=== PATIENT | female | born 1960 | race Caucasian/White ===

== ENCOUNTER 2020-09-17 04:38 | Day surgery (SDC) | payer OTHER ==
[2020-09-16 12:01] VITALS: BMI 29.6
--- OUTSIDE RECORDS SUMMARY | 2020-09-17 04:44 | XMS ---
:1960 Author Organization [facility] Support Name Relationship Address Phone [facility] Unavailable [address] [place] [address] [phone] [place] [address] [address] [employer] [address] [facility] [place] [address] Re-disclosure Warning The records that you are about to access may contain information from federally- assisted alcohol or drug abuse programs. If such information is present, then the following federally mandated warning applies: This information has been disclosed to you from records protected by federal confidentiality rules (42 CFR part 2). The federal rules prohibit you from making any further disclosure of this information unless further disclosure is expressly permitted by the written consent of the person to whom it pertains or as otherwise permitted by 42 CFR part 2. A general authorization for the release of medical or other information is NOT sufficient for this purpose. The Federal rules restrict any use of the information to criminally investigate or prosecute any alcohol or drug abuse patient.The records that you are about to access may contain highly sensitive health information, the redisclosure of which is protected by Article 27-F of the [facility] Public Health law. If you continue you may haveaccess to information: Regarding HIV / AIDS; Provided by facilities licensed or operated by the [facility] Office of Mental Health; or Provided by the [facility] Office for People With Developmental Disabilities. If such information is present, then the following [facility] mandated warning applies: This information has been disclosed to you from confidential records which are protected by state law. State law prohibits you from making any further disclosure of this information without the specific written consent of the person to whom it pertains, or as otherwise permitted by law. Any unauthorized further disclosure in violation of state law may result in a fine or care home sentence or both. A general authorization for the release of medical or other information is NOT sufficient authorization for further disclosure. Insurance Providers Payer name Policy type Policy ID Covered Covered democrat's Policy P percy / Coverage democrat ID relationship to [facility] type mccullough GARRET [id number] SP [id number] 2 HEALTH Results ID Date Data Source [id number] 09/13/2020 05:30:00 PM EDT [facility] Name Value Range Interpretation Description Data Sup porting Code Source(s) Document(s ) SARS [facility] coronavirus 2 RNA This lab was ordered by [facility] and reported by [facility]. ID Date Data Source [id number] 09/10/2020 09:10:00 AM EDT [facility] FASTING: UNKNOWNReceived: 09/10/2020 at 06:15:00 QTE: [facility], [place], [address], Jose Guadalupe Max MD FASTING: UNKNOWNReceived: 09/10/2020 at 06:15:00 QTE: [facility], [place], [address], Jose Guadalupe Max MD Received: 09/10/2020 at 06:15:00 QTE : [facility] [place], [address]Jose Guadalupe MD Received: 09/10/2020 at 06:15:00 QTE : [facility], [place], [address], Jose Guadalupe Max MD Name Value Range Interpretation Code Description Data Fiordaliza rce(s) Supporting Document(s ) ID Date Data Source [id number] 09/16/2020 12:12:00 PM EDT [facility] FASTING: UNKNOWNReceived: 09/10/2020 at 06:15:00 QTE: [facility] [place], [address]Jose Guadalupe MD FASTING: UNKNOWNReceived: 09/10/2020 at 06:15:00 QTE: [facility] [place], [address], Jose Guadalupe Max MD Received: 09/10/2020 at 06:15:00 QTE : [facility]i [address], [place], [address], Jose Guadalupe Max MD Received: 09/10/2020 at 06:15:00 QTE : [facility], Christi Pra[address]ati, [place], [address], Jose Guadalupe Max MD Name Value Range Interpretation Description Data Source(s ) Supporting Code Document(s ) Glucose 107 mg/dL 65-99 Above high normal [facility] [Mass/volum Diagnostics e] in Serum or Plasma Fasting reference intervalFor someone without known diabetes, a glucose valuebetween 100 and 125 mg/dL is consis tent withprediabetes and should be confirmed with afollow-up test. Urea nitrogen 15 mg/dL 7-25 Normal (applies to [facility] [Mass/volume] in Serum or non-numeric results) Plasma Creatinine [Mass/volume] 0.65 mg/dL Normal (applies to [facility] in Serum or Plasma non-numeric results) Age and/or gender not provided. Unable t o calculate eGFR. Reference Range Male: 0.70-1.25 Female: 0.50-0.99 Unable to flag appropriately due to gender not provided.For patients >49 years of age, the reference limitfor Creatinine is approxi mately 13% higher for peopleidentified as -[place]. Urea nitrogen/Creatinine NOT APPLICABLE 6-22 [facility] [Mass Ratio] in Serum or (calc) Plasma Sodium [Moles/volume] in 140 mmol/L 135-146 Normal Ques t Diagnostics Serum or Plasma (applies to non-numeric results) Potassium [Moles/volume] 4.7 mmol/L 3.5-5.3 Normal Ques t [facility] in Serum or Plasma (applies to non-numeric results) Chloride [Moles/volume] in 105 mmol/L 98-110 Normal Qu est [facility] Serum or Plasma (applies to non-numeric results) Carbon dioxide, total 18 mmol/L 20-32 Below low [facility] [Moles/volume] in Serum or normal Plasma Calcium [Mass/volume] in 9.8 mg/dL Normal [facility] Serum or Plasma (applies to non-numeric results) Reference Range Male: 8.6-10.3 Female: 8.6-10.4 Unable to flag appropriately due to gender not provided. Protein [Mass/volume] 7.4 g/dL 6.1-8.1 Normal (applies to [facility] in Serum or Plasma non-numeric results) Albumin [Mass/volume] 4.3 g/dL 3.6-5.1 Normal (applies to [facility] in Serum or Plasma non-numeric results) Globulin [Mass/volume] 3.1 g/dL 1.9-3.7 Normal (applies to [facility] in Serum by (calc) non-numeric results) calculation Albumin/Globulin [Mass 1.4 (calc) 1.0-2.5 Normal (applies to [facility] Ratio] in Serum or non-numeric results) Plasma Bilirubin.total 0.3 mg/dL 0.2-1.2 Normal (applies to [facility] [Mass/volume] in Serum non-numeric results) or Plasma Alkaline phosphatase 84 U/L Normal (applies to [facility] [Enzymatic non-numeric results) activity/volume] in Serum or Plasma Reference Range Male: 35-144 Female: 37-153 Unable to flag appropriately du e to gender not provided. Aspartate aminotransferase 20 U/L 10-35 Normal (applies to [facility] [Enzymatic activity/volume] non-numeric results) in Serum or Plasma Alanine aminotransferase 14 U/L Normal (applies to [facility] [Enzymatic activity/volume] non-numeric results) in Serum or Plasma Reference range Male: 9-46 Female: 6-29 Unable to flag appropriately due to ge nder not provided. ID Date Data Source [id number] 09/10/2020 09:10:00 AM EDT [facility] FASTING: UNKNOWNReceived: 09/10/2020 at 06:15:00 QTE: [place], [address], Jose Guadalupe Max MD FASTING: UNKNOWNReceived: 09/10/2020 at 06:15:00 QTE: [place], [address], Jose Guadalupe Max MD Received: 09/10/2020 at 06:15:00 QTE : [place], [address], Jose Guadalupe Max MD Received: 09/10/2020 at 06:15:00 QTE : [facility] Dip[place], [address], Jose Guadalupe Max MD Name Value Range Interpretation Code Description Data Fiordaliza rce(s) Supporting Document(s ) Service [facility] comment 03 Diagnostics We received the following limited stabil ity specimenwith no test marked. In the interest of the patient weperformed the test most indicated by the specimenwithin the stability period for that test. Test res ultswill not be released, however, unless you contact us toauthorize the test. CONTAINER TYPE: LAVENDER [facility] QUESTION/PROBLEM Specimen L unneeded Que st Diagnostics COMMENT [facility] REQUESTED INFORMATION AUTHORIZED SIGNATURE TO PRE VENT FURTHER DELAYS IN TESTING, PLEASE COMPLETEINFORMATION ABOVE AND FAX TO TO RESOLVETHIS ORDER. ID Date Data Source [id number] 09/16/2020 12:12:00 PM EDT [facility] FASTING: UNKNOWNReceived: 09/10/2020 at 06:15:00 QTE: [facility], [place], [address], Jose Guadalupe Max MD FASTING: UNKNOWNReceived: 09/10/2020 at 06:15:00 QTE: [facility], [address]Jose Guadalupe MD Received: 09/10/2020 at 06:15:00 QTE : [facility] [place], [address]Jose Guadalupe MD Received: 09/10/2020 at 06:15:00 QTE : [facility], [address], Jose Guadalupe Max MD Name Value Range Interpretation Description Data Source(s ) Supporting Code Document(s ) aPTT in 27 sec 23-32 Normal (applies [facility] Platelet poor to non-numeric Diagnostics plasma by results) Coagulation assay This test has not been validated for mon itoringunfractionated heparin therapy. For testing thatis validated for this type o f therapy, please referto the Heparin Anti-Xa assay (test code 27759).For additional i nformation, please refer tohttp://[employer]Photoways/ faq/CDZ269(This link is being provided forinformational/educational purposes on ly.) ID Date Data Source [id number] 09/16/2020 12:12:00 PM EDT [facility] FASTING: UNKNOWNReceived: 09/10/2020 at 06:15:00 QTE: [facility]osticsOs[facility], Christi [place], [address], Jose Guadalupe Max MD FASTING: UNKNOWNReceived: 09/10/2020 at 06:15:00 QTE: [facility]osticsOs[facility], Christi [place], [address]Jose Guadalupe MD Received: 09/10/2020 at 06:15:00 QTE : [facility] Christi [place], [address]Jose Guadalupe MD Received: 09/10/2020 at 06:15:00 QTE : [facility]ostics[facility], Christi [place], [address], Jose Guadalupe Max MD Name Value Range Interpretation Description Data Source(s ) Supporting Code Document(s ) INR in Platelet 1.0 Normal (applies to [facility] poor plasma by non-numeric Diagnostics Coagulation results) assay Reference Range 0.9- 1.1Moderate-intensity Warfarin Therapy 2.0-3.0Higher-intensity Warfarin Therapy 3.0-4.0 Prothrombin time (PT) 10.0 sec 9.0-11.5 Normal (applies to [facility] non-numeric results) For additional information, please refer tohttp://[employer]Timecros/ faq/AXG662(This link is being provided for informational/educational purposes only. ) ID Date Data Source [id number] 08/31/2020 08:11:00 AM EDT [facility] FASTING: UNKNOWNReceived: 08/27/2020 at 05:49:00 QTE: [facility], [address], [place], [address], Jose Guadalupe Max MD Received: 08/27/2020 at 05:49:00 QTE : [facility], [address], [place], [address], Jose Guadalupe Max MD Received: 08/27/2020 at 05:49:00 QTE : [facility], [address], [place], [address], Jose Guadalupe Max MD Received: 08/27/2020 at 05:49:00 QTE : [facility], [address], [place], [address], Jose Guadalupe Max MD Received: 08/27/2020 at 05:49:00 QTE : [facility], [address], [place], [address], Jose Guadalupe Max MD Received: 08/27/2020 at 05:49:00 QTE : [facility], [address], [place], [address], Jose Guadalupe Max MD Received: 08/27/2020 at 05:49:00 QTE : [facility], [address], [place], [address], Jose Guadalupe Max MD Received: 08/27/2020 at 05:49:00 QTE : [facility], [address], [place], [address], Jose Guadalupe Max MD Received: 08/27/2020 at 05:49:00 QTE : [facility], [address], [place], [address], Jose Guadalupe Max MD Received: 08/27/2020 at 05:49:00 QTE : [facility], [address], [place], [address], Jose Guadalupe Max MD Received: 08/27/2020 at 05:49:00 QTE : [facility], [address], [place], [address], Jose Guadalupe Max MD Received: 08/27/2020 at 05:49:00 QTE : [facility], Christi Cor[address], [place], [address], Jose Guadalupe Max MD Received: 08/27/2020 at 05:49:00 QTE : [facility], [address], [place], [address], Jose Guadalupe Max MD Name Value Range Interpretation Code Description Data Fiordaliza rce(s) Supporting Document(s ) ID Date Data Source [id number] 08/31/2020 08:11:00 AM EDT [facility] FASTING: UNKNOWNReceived: 08/27/2020 at 05:49:00 QTE: [facility], [address], [place], [address], Jose Guadalupe Max MD Received: 08/27/2020 at 05:49:00 QTE : [facility], [address], [place], [address], Jose Guadalupe Max MD Received: 08/27/2020 at 05:49:00 QTE : [facility], [address], [place], [address], Jose Guadalupe Max MD Received: 08/27/2020 at 05:49:00 QTE : [facility], [address], [place], [address], Jose Guadalupe Max MD Received: 08/27/2020 at 05:49:00 QTE : [facility], [address], [place], [address], Jose Guadalupe Max MD Received: 08/27/2020 at 05:49:00 QTE : [facility], [address], [place], [address], Jose Guadalupe Max MD Received: 08/27/2020 at 05:49:00 QTE : [facility], Christ[address], [place], [address], Jose Guadalupe Max MD Received: 08/27/2020 at 05:49:00 QTE : [facility], [address], [place], [address], Jose Guadalupe Max MD Received: 08/27/2020 at 05:49:00 QTE : [facility], [address], [place], [address], Jose Guadalupe Max MD Received: 08/27/2020 at 05:49:00 QTE : [facility], [address], [place], [address], Jose Guadalupe Max MD Received: 08/27/2020 at 05:49:00 QTE : [facility], [address], [place], [address], Jose Guadalupe Max MD Received: 08/27/2020 at 05:49:00 QTE : [facility], Christ[address], [place], [address], Jose Guadalupe Max MD Received: 08/27/2020 at 05:49:00 QTE : [facility], [address], [place], [address], Jose Guadalupe Max MD Name Value Range Interpretation Description Data Source(s ) Supporting Code Document(s ) Cholesterol 250 <200 Above high normal [facility] [Mass/volume] mg/dL Diagnostics in Serum or Plasma ID Date Data Source [id number] 08/31/2020 08:11:00 AM EDT [facility] FASTING: UNKNOWNReceived: 08/27/2020 at 05:49:00 QTE: [facility], [place], [address], Jose Guadalupe Max MD Received: 08/27/2020 at 05:49:00 QTE : [facility], [address], [place], [address], Jose Guadalupe Max MD Received: 08/27/2020 at 05:49:00 QTE : [facility], [address], [place], [address], Jose Guadalupe Max MD Received: 08/27/2020 at 05:49:00 QTE : [facility], [address], [place], [address], Jose Guadalupe Max MD Received: 08/27/2020 at 05:49:00 QTE : [facility], [address], [place], [address], Jose Guadalupe Max MD Received: 08/27/2020 at 05:49:00 QTE : [facility], [address], [place], [address], Jose Guadalupe Max MD Received: 08/27/2020 at 05:49:00 QTE : [facility], [address], [place], [address], Jose Guadalupe Max MD Received: 08/27/2020 at 05:49:00 QTE : [facility], [address], [place], [address], Jose Guadalupe Max MD Received: 08/27/2020 at 05:49:00 QTE : [facility], [address], [place], [address], Jose Guadalupe Max MD Received: 08/27/2020 at 05:49:00 QTE : [facility], [address], [place], [address], Jose Guadalupe Max MD Received: 08/27/2020 at 05:49:00 QTE : [facility], [address], [place], [address], Jose Guadalupe Max MD Received: 08/27/2020 at 05:49:00 QTE : [facility], [address], [place], [address], Jose Guadalupe Max MD Received: 08/27/2020 at 05:49:00 QTE : [facility], [place], [address], Jose Guadalupe Max MD Name Value Range Interpretation Description Data Sup porting Code Source(s) Document(s ) Cholesterol in 77 mg/dL > OR = Normal (applies [facility] HDL 50 to non-numeric Diagnostics [Mass/volume] results) in Serum or Plasma ID Date Data Source [id number] 08/31/2020 08:11:00 AM EDT [facility] FASTING: UNKNOWNReceived: 08/27/2020 at 05:49:00 QTE: [facility], [place], [address], Jose Guadalupe Max MD Received: 08/27/2020 at 05:49:00 QTE : [facility], [place], [address], Jose Guadalupe Max MD Received: 08/27/2020 at 05:49:00 QTE : [facility], [place], [address], Jose Guadalupe Max MD Received: 08/27/2020 at 05:49:00 QTE : [facility], [place], [address], Jose Guadalupe Max MD Received: 08/27/2020 at 05:49:00 QTE : [facility], [address], Jose Guadalupe Max MD Received: 08/27/2020 at 05:49:00 QTE : [facility], [address], Jose Guadalupe Max MD Received: 08/27/2020 at 05:49:00 QTE : [facility], [place], [address], Jose Guadalupe Max MD Received: 08/27/2020 at 05:49:00 QTE : [facility], [address], [place], [address], Jose Guadalupe Max MD Received: 08/27/2020 at 05:49:00 QTE : [facility], [address], [place], [address], Jose Guadalupe Max MD Received: 08/27/2020 at 05:49:00 QTE : [facility], [address], [place], [address], Jose Guadalupe Max MD Received: 08/27/2020 at 05:49:00 QTE : [facility], [address], [place], [address], Jose Guadalupe Max MD Received: 08/27/2020 at 05:49:00 QTE : [facility], [address], [place], [address], Jose Guadalupe Max MD Received: 08/27/2020 at 05:49:00 QTE : [facility], [address], [place], [address], Jose Guadalupe Max MD Name Value Range Interpretation Description Data Source(s ) Supporting Code Document(s ) Triglyceride 240 <150 Above high normal [facility] [Mass/volume] mg/dL Diagnostics in Serum or Plasma If a non-fasting specimen was collected, considerrepeat triglyceride testing on a fasting specimenif clinically indicated. Alber et al. J. of Clin. Lipidol. 2015;9:129-169. ID Date Data Source [id number] 08/31/2020 08:11:00 AM EDT [facility] FASTING: UNKNOWNReceived: 08/27/2020 at 05:49:00 QTE: [facility], Christi [place], [place], [address], Jose Guadalupe Max MD Received: 08/27/2020 at 05:49:00 QTE : [facility], Christi [place], [place], [address]Jose Guadalupe MD Received: 08/27/2020 at 05:49:00 QTE : [facility], [address], [place], [address], Jose Guadalupe Max MD Received: 08/27/2020 at 05:49:00 QTE : [facility], [address], [place], [address], Jose Guadalupe Max MD Received: 08/27/2020 at 05:49:00 QTE : [facility], [address], [place], [address], Jose Guadalupe Max MD Received: 08/27/2020 at 05:49:00 QTE : [facility], [address], [place], [address], Jose Guadalupe Max MD Received: 08/27/2020 at 05:49:00 QTE : [facility], [address], [place], [address], Jose Guadalupe Max MD Received: 08/27/2020 at 05:49:00 QTE : [facility], [address], [place], [address], Jose Guadalupe Max MD Received: 08/27/2020 at 05:49:00 QTE : [facility], [address], [place], [address], Jose Guadalupe Max MD Received: 08/27/2020 at 05:49:00 QTE : [facility], [address], [place], [address], Jose Guadalupe Max MD Received: 08/27/2020 at 05:49:00 QTE : [facility], [address], [place], [address], Jose Guadalupe Max MD Received: 08/27/2020 at 05:49:00 QTE : [facility], [address], [place], [address], Jose Guadalupe Max MD Received: 08/27/2020 at 05:49:00 QTE : [facility], [address], [place], [address], Jose Guadalupe Max MD Name Value Range Interpretation Description Data Source(s ) Supporting Code Document(s ) Cholesterol in 134 Above high normal [facility] LDL mg/dL [facility] [Mass/volume] (calc) in Serum or Plasma by calculation Reference range: <100Desirable range <10 0 mg/dL for primary prevention;<70 mg/dL for patients with CHD or diabetic patientswi th > or = 2 CHD risk factors.LDL-C is now calculated using the JabariCandida lation, which is a validated novel method providingbetter accuracy than the Friede ranjith equation in theestimation of LDL-C.Jabari SS et al. KENDY. 2013;310(58 ): 2833-6075(http://education.Endorphin.com/faq/DQP335) ID Date Data Source [id number] 08/31/2020 08:11:00 AM EDT [facility] FASTING: UNKNOWNReceived: 08/27/2020 at 05:49:00 QTE: [facility] [place], [address], Jose Guadalupe Max MD Received: 08/27/2020 at 05:49:00 QTE : [facility] [place], [address], Jose Guadalupe Max MD Received: 08/27/2020 at 05:49:00 QTE : [place], [address]Jose Guadalupe MD Received: 08/27/2020 at 05:49:00 QTE : [facility] [place], [address], Jose Guadalupe Max MD Received: 08/27/2020 at 05:49:00 QTE : [facility] [place], [address]Jose Guadalupe MD Received: 08/27/2020 at 05:49:00 QTE : [facility] [place], [address], Jose Guadalupe Max MD Received: 08/27/2020 at 05:49:00 QTE : [facility], [address], [place], [address], Jose Guadalupe Max MD Received: 08/27/2020 at 05:49:00 QTE : [facility], [address], [place], [address], Jose Guadalupe Max MD Received: 08/27/2020 at 05:49:00 QTE : [facility], [address], [place], [address], Jose Guadalupe Max MD Received: 08/27/2020 at 05:49:00 QTE : [facility], [address], [place], [address], Jose Guadalupe Max MD Received: 08/27/2020 at 05:49:00 QTE : [facility], [address], [place], [address], Jose Guadalupe Max MD Received: 08/27/2020 at 05:49:00 QTE : [facility], [address], [place], [address], Jose Guadalupe Max MD Received: 08/27/2020 at 05:49:00 QTE : [facility], [address], [place], [address], Jose Guadalupe Max MD Name Value Range Interpretation Description Data Source(s ) Supporting Code Document(s ) Cholestero 3.2 <5.0 Normal (applies to [facility] l.total/Ch (calc) non-numeric Diagnostics olesterol results) in HDL [Mass Ratio] in Serum or Plasma ID Date Data Source [id number] 08/31/2020 08:11:00 AM EDT [facility] FASTING: UNKNOWNReceived: 08/27/2020 at 05:49:00 QTE: [facility], [address], [place], [address], Jose Guadalupe Max MD Received: 08/27/2020 at 05:49:00 QTE : [facility], [address], [place], [address], Jose Guadalupe Max MD Received: 08/27/2020 at 05:49:00 QTE : [facility], [address], [place], [address], Jose Guadalupe Max MD Received: 08/27/2020 at 05:49:00 QTE : [facility], [address], [place], [address], Jose Guadalupe Max MD Received: 08/27/2020 at 05:49:00 QTE : [facility], [address], [place], [address], Jose Guadalupe Max MD Received: 08/27/2020 at 05:49:00 QTE : [facility], [address], [place], [address], Jose Guadalupe Max MD Received: 08/27/2020 at 05:49:00 QTE : [facility], [address], [place], [address], Jose Guadalupe Max MD Received: 08/27/2020 at 05:49:00 QTE : [facility], [address], [place], [address], Jose Guadalupe Max MD Received: 08/27/2020 at 05:49:00 QTE : [facility], [address], [place], [address], Jose Guadalupe Max MD Received: 08/27/2020 at 05:49:00 QTE : [facility], [address], [place], [address], Jose Guadalupe Max MD Received: 08/27/2020 at 05:49:00 QTE : [facility], [address], [place], [address], Jose Guadalupe Max MD Received: 08/27/2020 at 05:49:00 QTE : [facility], [address], [place], [address], Jose Guadalupe Max MD Received: 08/27/2020 at 05:49:00 QTE : [facility], [address], [place], [address], Jose Guadalupe Max MD Name Value Range Interpretation Description Data Source(s ) Supporting Code Document(s ) Cholesterol 173 <130 Above high normal [facility] non HDL mg/dL Diagnostics [Mass/volume] (calc) in Serum or Plasma For patients with diabetes plus 1 major ASCVD riskfactor, treating to a non-HDL-C goal of <100 mg/dL(LDL-C of <70 mg/dL) i s considered a therapeuticoption. ID Date Data Source [id number] 08/31/2020 08:11:00 AM EDT [facility] FASTING: UNKNOWNReceived: 08/27/2020 at 05:49:00 QTE: [facility], [place], [address], Jose Guadalupe Max MD Received: 08/27/2020 at 05:49:00 QTE : [facility] [place], [address], Jose Guadalupe Max MD Received: 08/27/2020 at 05:49:00 QTE : [facility] [place], [address], Jose Guadalupe Max MD Received: 08/27/2020 at 05:49:00 QTE : [facility] [place], [address], Jose Guadalupe Max MD Received: 08/27/2020 at 05:49:00 QTE : [facility] [place], [address], Jose Guadalupe Max MD Received: 08/27/2020 at 05:49:00 QTE : [facility] [place], [address]Jose Guadalupe MD Received: 08/27/2020 at 05:49:00 QTE : [facility], [address], [place], [address], Jose Guadalupe Max MD Received: 08/27/2020 at 05:49:00 QTE : [facility], [address], [place], [address], Jose Guadalupe Max MD Received: 08/27/2020 at 05:49:00 QTE : [facility], [address], [place], [address], Jose Guadalupe Max MD Received: 08/27/2020 at 05:49:00 QTE : [facility], [address], [place], [address], Jose Guadalupe Max MD Received: 08/27/2020 at 05:49:00 QTE : [facility], [address], [place], [address], Jose Guadalupe Max MD Received: 08/27/2020 at 05:49:00 QTE : [facility], [address], [place], [address], Jose Guadalupe Max MD Received: 08/27/2020 at 05:49:00 QTE : [facility], [address], [place], [address], Jose Guadalupe Max MD Name Value Range Interpretation Description Data Source(s ) Supporting Code Document(s ) Glucose 186 mg/dL 65-99 Above high normal [facility] [Mass/volum Diagnostics e] in Serum or Plasma Fasting reference intervalFor someone without known diabetes, a glucosevalue >125 mg/dL indicates that t hey may havediabetes and this should be confirmed with afollow-up test. Urea nitrogen 15 mg/dL 7-25 Normal (applies to [facility] D iagnostics [Mass/volume] in Serum non-numeric results) or Plasma Creatinine 0.73 mg/dL 0.50-0.99 Normal (applies to [facility] gn[facility] [Mass/volume] in Serum non-numeric results) or Plasma For patients >49 years of age, the refer ence limitfor Creatinine is approximately 13% higher for peopleidentified as -A merican. Glomerular filtration 90 mL/min/1.73m2 > OR = Normal (applies [facility] rate/1.73 sq 60 to non-numeric Diagnostics M.predicted [Volume results) Rate/Area] in Serum, Plasma or Blood by Creatinine-based formula (MDRD) Glomerular filtration 104 mL/min/1.73m2 > OR = Normal (applies [facility] rate/1.73 sq M 60 to non-numeric Diagnostic s predicted among blacks results) [Volume Rate/Area] in Serum or Plasma by Creatinine-based formula (MDRD) Urea NOT APPLICABLE 6-22 [facility] nitrogen/Creatinine (calc) Diagnostic s [Mass Ratio] in Serum or Plasma Sodium [Moles/volume] 138 mmol/L 135-146 Normal (applies Q uest in Serum or Plasma to non-numeric Diagno stics results) Potassium 4.5 mmol/L 3.5-5.3 Normal (applies [facility] [Moles/volume] in to non-numeric Diagnos tics Serum or Plasma results) Chloride 102 mmol/L 98-110 Normal (applies [facility] [Moles/volume] in to non-numeric Diagnos tics Serum or Plasma results) Carbon dioxide, total 26 mmol/L 20-32 Normal (applies Qu est [Moles/volume] in to non-numeric Diagnos tics Serum or Plasma results) Calcium [Mass/volume] 9.9 mg/dL 8.6-10.4 Normal (applies Qu est in Serum or Plasma to non-numeric Diagno stics results) Protein [Mass/volume] 7.3 g/dL 6.1-8.1 Normal (applies Qu est in Serum or Plasma to non-numeric Diagno stics results) Albumin [Mass/volume] 4.3 g/dL 3.6-5.1 Normal (applies Qu est in Serum or Plasma to non-numeric Diagno stics results) Globulin [Mass/volume] 3.0 g/dL (calc) 1.9-3.7 Normal (applies [facility] in Serum by to non-numeric Diagnostics calculation results) Albumin/Globulin [Mass 1.4 (calc) 1.0-2.5 Normal (applies [facility] Ratio] in Serum or to non-numeric Diagno stics Plasma results) Bilirubin.total 0.4 mg/dL 0.2-1.2 Normal (applies [facility] [Mass/volume] in Serum to non-numeric Di agnostics or Plasma results) Alkaline phosphatase 92 U/L 37-153 Normal (applies Que st [Enzymatic to non-numeric Diagnostics activity/volume] in results) Serum or Plasma Aspartate 14 U/L 10-35 Normal (applies [facility] aminotransferase to non-numeric Diagnost ics [Enzymatic results) activity/volume] in Serum or Plasma Alanine 14 U/L 6-29 Normal (applies [facility] aminotransferase to non-numeric Diagnost ics [Enzymatic results) activity/volume] in Serum or Plasma ID Date Data Source [id number] 08/31/2020 08:11:00 AM EDT [facility] FASTING: UNKNOWNReceived: 08/27/2020 at 05:49:00 QTE: [facility], [place], [address], Jose Guadalupe Max MD Received: 08/27/2020 at 05:49:00 QTE : [facility] [place], [address], Jose Guadalupe Max MD Received: 08/27/2020 at 05:49:00 QTE : [facility], [place], [address], Jose Guadalupe Max MD Received: 08/27/2020 at 05:49:00 QTE : [facility] Christi [place], [address], Jose Guadalupe Max MD Received: 08/27/2020 at 05:49:00 QTE : [facility] [place], [address], Jose Guadalupe Max MD Received: 08/27/2020 at 05:49:00 QTE : [facility] [place], [address], Jose Guadalupe Max MD Received: 08/27/2020 at 05:49:00 QTE : [facility], [address], Jose Guadalupe Max MD Received: 08/27/2020 at 05:49:00 QTE : [facility], [address], [place], [address], Jose Guadalupe Max MD Received: 08/27/2020 at 05:49:00 QTE : [facility], [address], [place], [address], Jose Guadalupe Max MD Received: 08/27/2020 at 05:49:00 QTE : [facility], [address], [place], [address], Jose Guadalupe Max MD Received: 08/27/2020 at 05:49:00 QTE : [facility], [address], [place], [address], Jose Guadalupe Max MD Received: 08/27/2020 at 05:49:00 QTE : [facility], [address], [place], [address], Jose Guadalupe Max MD Received: 08/27/2020 at 05:49:00 QTE : [facility], [address], [place], [address], Jose Guadalupe Max MD Name Value Range Interpretation Description Data Sup porting Code Source(s) Document(s ) Leukocytes 5.9 3.8-10. Normal (applies [facility] [#/volume] in Thousand 8 to non-numeric Diagnostics Blood by /uL results) Automated count Erythrocytes 4.34 3.80-5. Normal (applies [facility] [#/volume] in Million/ 10 to non-numeric Diagnostics Blood by uL results) Automated count Hemoglobin 13.0 11.7-15 Normal (applies [facility] [Mass/volume] in g/dL .5 to non-numeric Diagnost ics Blood results) Hematocrit 39.3 % 35.0-45 Normal (applies [facility] [Volume .0 to non-numeric Diagnostics Fraction] of results) Blood by Automated count Erythrocyte mean 90.6 fL 80.0-10 Normal (applies [facility] corpuscular 0.0 to non-numeric Diagnostics volume [Entitic results) volume] by Automated count Erythrocyte mean 30.0 pg 27.0-33 Normal (applies [facility] corpuscular .0 to non-numeric Diagnostics hemoglobin results) [Entitic mass] by Automated count Erythrocyte mean 33.1 32.0-36 Normal (applies [facility] corpuscular g/dL .0 to non-numeric Diagnostics hemoglobin results) concentration [Mass/volume] by Automated count Erythrocyte 12.9 % 11.0-15 Normal (applies [facility] distribution .0 to non-numeric Diagnostics width [Ratio] by results) Automated count Platelets 318 140-400 Normal (applies [facility] [#/volume] in Thousand to non-numeric Diagnostics Blood by /uL results) Automated count Platelet mean 11.5 fL 7.5-12. Normal (applies [facility] volume [Entitic 5 to non-numeric Diagnosti cs volume] in Blood results) by Leilani ID Date Data Source [id number] 08/31/2020 08:11:00 AM EDT [facility] FASTING: UNKNOWNReceived: 08/27/2020 at 05:49:00 QTE: [facility], [place], [address], Jose Guadalupe Max MD Received: 08/27/2020 at 05:49:00 QTE : [facility], Christi Gonzalezvinny [place], [address], Jose Guadalupe Max MD Received: 08/27/2020 at 05:49:00 QTE : [facility], [place], [address], Jose Guadalupe Max MD Received: 08/27/2020 at 05:49:00 QTE : [facility], Christi [place], [address], Jose Guadalupe Max MD Received: 08/27/2020 at 05:49:00 QTE : [facility], [address], Jose Guadalupe Max MD Received: 08/27/2020 at 05:49:00 QTE : [facility], Christi GonzalezJaycee [place], [address], Jose Guadalupe Max MD Received: 08/27/2020 at 05:49:00 QTE : [facility], [address], Jose Guadalupe Max MD Received: 08/27/2020 at 05:49:00 QTE : [facility], [address], [place], [address], Jose Guadalupe Max MD Received: 08/27/2020 at 05:49:00 QTE : [facility], [address], [place], [address], Jose Guadalupe Max MD Received: 08/27/2020 at 05:49:00 QTE : [facility], [address] [place], [address], Jose Guadalupe Max MD Received: 08/27/2020 at 05:49:00 QTE : [facility], [place], [address], Jose Guadalupe Max MD Received: 08/27/2020 at 05:49:00 QTE : [facility], [address], [place], [address], Jose Guadalupe Max MD Received: 08/27/2020 at 05:49:00 QTE : [facility], [place], [address], Jose Guadalupe Max MD Name Value Range Interpretation Description Data Source(s ) Supporting Code Document(s ) EXTRA TUBE [facility] RECEIV[facility] An extra specimen was received with no t est requested.The specimen will be maintained in storage in caseadditional testing is needed. Please call the clientservice department for further assistance. Specimen source [Identifier] of Unspecified specimen Urine [facility] ID Date Data Source [id number] 08/31/2020 08:11:00 AM EDT [facility] FASTING: UNKNOWNReceived: 08/27/2020 at 05:49:00 QTE: [facility], [place], [address]Jose Guadalupe MD Received: 08/27/2020 at 05:49:00 QTE : [facility], [place], [address], Jose Guadalupe Max MD Received: 08/27/2020 at 05:49:00 QTE : [facility], [address], [place], [address], Jose Guadalupe Max MD Received: 08/27/2020 at 05:49:00 QTE : [facility], [address], [place], [address], Jose Guadalupe Max MD Received: 08/27/2020 at 05:49:00 QTE : [facility], [address], [place], [address], Jose Guadalupe Max MD Received: 08/27/2020 at 05:49:00 QTE : [facility], [address], [place], [address], Jose Guadalupe Max MD Received: 08/27/2020 at 05:49:00 QTE : [facility], [address], [place], [address], Jose Guadalupe Max MD Received: 08/27/2020 at 05:49:00 QTE : [facility], [address], [place], [address], Jose Guadalupe Max MD Received: 08/27/2020 at 05:49:00 QTE : [facility], [address], [place], [address], Jose Guadalupe Max MD Received: 08/27/2020 at 05:49:00 QTE : [facility], [address], [place], [address], Jose Guadalupe Max MD Received: 08/27/2020 at 05:49:00 QTE : [facility], [address], [place], [address], Jose Guadalupe Max MD Received: 08/27/2020 at 05:49:00 QTE : [facility], [address], [place], [address], Jose Guadalupe Max MD Received: 08/27/2020 at 05:49:00 QTE : [facility], [place], [address], Jose Guadalupe Max MD Name Value Range Interpretation Description Data Source(s ) Supporting Code Document(s ) Thyroxine 8.9 5.1-11.9 Normal (applies [facility] (T4) mcg/dL to non-numeric Diagnostics [Mass/volume results) ] in Serum or Plasma ID Date Data Source [id number] 08/31/2020 08:11:00 AM EDT [facility] FASTING: UNKNOWNReceived: 08/27/2020 at 05:49:00 QTE: [facility], [place], [address], Jose Guadalupe Max MD Received: 08/27/2020 at 05:49:00 QTE : [facility], [place], [address], Jose Guadalupe Max MD Received: 08/27/2020 at 05:49:00 QTE : [facility], [place], [address], Jose Guadalupe Max MD Received: 08/27/2020 at 05:49:00 QTE : [facility], [place], [address], Jose Guadalupe Max MD Received: 08/27/2020 at 05:49:00 QTE : [facility], [place], [address], Jose Guadalupe Max MD Received: 08/27/2020 at 05:49:00 QTE : [facility], [place], [address], Jose Guadalupe Max MD Received: 08/27/2020 at 05:49:00 QTE : [facility], [place], [address], Jose Guadalupe Max MD Received: 08/27/2020 at 05:49:00 QTE : [facility], [place], [address], Jose Guadalupe Max MD Received: 08/27/2020 at 05:49:00 QTE : [facility], Christ[address], [place], [address], Jose Guadalupe Max MD Received: 08/27/2020 at 05:49:00 QTE : [facility], [address], [place], [address], Jose Guadalupe Max MD Received: 08/27/2020 at 05:49:00 QTE : [facility], [address], [place], [address], Jose Guadalupe Max MD Received: 08/27/2020 at 05:49:00 QTE : [facility], [address], [place], [address], Jose Guadalupe Max MD Received: 08/27/2020 at 05:49:00 QTE : [facility], [address], [place], [address], Jose Guadalupe Max MD Name Value Range Interpretation Description Data Sup porting Code Source(s) Document(s ) Thyrotropin 3.98 0.40-4.5 Normal (applies [facility] [Units/volume] mIU/L 0 to non-numeric Diagnostic s in Serum or results) Plasma ID Date Data Source [id number] 08/31/2020 08:11:00 AM EDT [facility] FASTING: UNKNOWNReceived: 08/27/2020 at 05:49:00 QTE: [facility], [address], [place], [address], Jose Guadalupe Max MD Received: 08/27/2020 at 05:49:00 QTE : [facility], [place], [address], Jose Guadalupe Max MD Received: 08/27/2020 at 05:49:00 QTE : [facility], [address], [place], [address], Jose Guadalupe Max MD Received: 08/27/2020 at 05:49:00 QTE : [facility], [address], [place], [address], Jose Guadalupe Max MD Received: 08/27/2020 at 05:49:00 QTE : [facility], [address], [place], [address], Jose Guadalupe Max MD Received: 08/27/2020 at 05:49:00 QTE : [facility], [address], [place], [address], Jose Guadalupe Max MD Received: 08/27/2020 at 05:49:00 QTE : [facility], [address], [place], [address], Jose Guadalupe Max MD Received: 08/27/2020 at 05:49:00 QTE : [facility], [address], [place], [address], Jose Guadalupe Max MD Received: 08/27/2020 at 05:49:00 QTE : [facility], [address], [place], [address], Jose Guadalupe Max MD Received: 08/27/2020 at 05:49:00 QTE : [facility], [address], [place], [address], Jose Guadalupe Max MD Received: 08/27/2020 at 05:49:00 QTE : [facility], [address], [place], [address], Jose Guadalupe Max MD Received: 08/27/2020 at 05:49:00 QTE : [facility], [address], [place], [address], Jose Guadalupe Max MD Received: 08/27/2020 at 05:49:00 QTE : [facility], [address], [place], [address], Jose Guadalupe Max MD Name Value Range Interpretation Description Data Source(s ) Supporting Code Document(s ) Hemoglobin 7.9 % of <5.7 Above high normal [facility] A1c/Hemoglobin total Diagnostics .total in Hgb Blood For someone without known diabetes, a he moglobin Y1zounba of 6.5% or greater indicates that they may havediabetes and this should be confirmed with a follow-uptest.For someone with known татьяна betes, a value <7% indicatesthat their diabetes is well controlled and a valueg reater than or equal to 7% indicates suboptimalcontrol. A1c targets should be individualized based onduration of diabetes, age, comorbid conditions, andother consi derations.Currently, no consensus exists regarding use ofhemoglobin A1c for diagn osis of diabetes for children. ID Date Data Source [id number] 08/31/2020 08:11:00 AM EDT [facility] FASTING: UNKNOWNReceived: 08/27/2020 at 05:49:00 QTE: [facility] [place], [address]Jose Guadalupe MD Received: 08/27/2020 at 05:49:00 QTE : [facility] [place], [address]Jose Guadalupe MD Received: 08/27/2020 at 05:49:00 QTE : [facility] [place], [address]Jose Guadalupe MD Received: 08/27/2020 at 05:49:00 QTE : [facility] [place], [address]Jose Guadalupe MD Received: 08/27/2020 at 05:49:00 QTE : [facility] [place], [address]Jose Guadalupe MD Received: 08/27/2020 at 05:49:00 QTE : [facility] [place], [address]Jose Guadalupe MD Received: 08/27/2020 at 05:49:00 QTE : [facility], Christi [address], [place], [address], Jose Guadalupe Max MD Received: 08/27/2020 at 05:49:00 QTE : [facility], [address], [place], [address], Jose Guadalupe Max MD Received: 08/27/2020 at 05:49:00 QTE : [facility], Christ[address], [place], [address], Jose Guadalupe Max MD Received: 08/27/2020 at 05:49:00 QTE : [facility], Christi [address], [place], [address], Jose Guadalupe Max MD Received: 08/27/2020 at 05:49:00 QTE : [facility], Christ[address], [place], [address], Jose Guadalupe Max MD Received: 08/27/2020 at 05:49:00 QTE : [facility], Christ[address], [place], [address], Jose Guadalupe Max MD Received: 08/27/2020 at 05:49:00 QTE : [facility], Christ[address], [place], [address], Jose Guadalupe Max MD Name Value Range Interpretation Description Data Source(s ) Supporting Code Document(s ) ABO group O [facility] [Type] in Diagnostics Blood Rh [Type] RH(D) [facility] in Blood POSITIVE Diagnostics For additional information, please refer [email or web address]/ [email or web address](This link is being provided for informational/educational purposes only. ) Procedure
--- NOTE | 2020-09-17 07:46 | HP ---
History & Physical Update - History History: No Change (Consent signed and witnessed All questions answered) - Physical Physical: No Change - Assessment Assessment: No Change - Plan Plan: No Change
[2020-09-17] MEDS ORDERED: IBUPROFEN 800 MG/8 ML IJ IVPB PRN (07:47)
[2020-09-17] MEDS ORDERED: IBUPROFEN 600 MG TABLET (FP) PO PRN (07:47)
[2020-09-17] MEDS ORDERED: oxyCODONE HCL 5 MG TABLET PO PRN (07:47)
[2020-09-17] MEDS ORDERED: ONDANSETRON 4 MG/2 ML VIAL IVPUSH PRN (07:47)
--- NOTE | 2020-09-17 07:53 | OP ---
Operative Note - Note: Operative Date: 09/17/20 Pre-Operative Diagnosis: 60yo P0 with thick endometrium Operation: Hysteroscopy/Polypectomy/D&C Findings: 6cm regular uterus with fibrous tissue blocking internal cervical os Right cornual polyp Post-Operative Diagnosis: Same as Pre-op Surgeon: Keren Valentine Anesthesiologist/EKG MONITOR TECH: Clarence Prieto Anesthesia: MAC Specimens Removed: uterine polyp and fibrous tissue Estimated Blood Loss (mls): 5 Instrument used (Debridements only): Symphion resectoscope/Hysteroscope Drains & Tubes with Location: 0cc Fluid defficit Drains, Volume Out (mls): 100 Fluid Volume Replaced (mls): 500 Operative Report Dictated: Yes
[2020-09-17] MEDS ORDERED: ELECTROLYTE-148 SOLN 1,000 ML IV SCH (08:00)
[2020-09-17 09:20] LABS: HEMATOCRIT 39.4 % (32.4-45.2); HEMOGLOBIN 13.2 GM/dL (10.7-15.3); MCH 29.9 pg (25.7-33.7); MCHC 33.5 g/dl (32.0-36.0); MEAN CELL VOLUME 89.5 fl (80-96); MEAN PLT VOLUME 8.5 fl (7.5-11.1); PLATELET COUNT 347 K/MM3 (134-434); RBC 4.41 M/mm3 (3.60-5.2); RDW 13.4 % (11.6-15.6); WHITE BLOOD COUNT 7.2 K/mm3 (4.0-10.0)
[2020-09-17] MEDS ORDERED: MIDAZOLAM HCL 2 MG/2 ML SINGLE DOSE VIAL ONE (11:23)
[2020-09-17] MEDS ORDERED: CIPROFLOXACIN 400 MG PREMIX BAG IVPB ONE (11:57)
[2020-09-17] MEDS ORDERED: CIPROFLOXACIN 400 MG/D5W 400 MG/200 ML IVPB IVPB ONE (12:00)
[2020-09-17] MEDS ORDERED: KETOROLAC TROMETHAMINE 30 MG/1 ML VIAL ONE (12:04)
[2020-09-17] MEDS ORDERED: LACTATED RINGERS SOLUTION 1,000 ML IV SCH (12:45)
--- NOTE | 2020-09-17 13:52 | OP ---
DATE OF OPERATION: 09/17/2020 PREOPERATIVE DIAGNOSIS: Nydnf-wchi-uiu para 0 with thick endometrium. OPERATION: Hysteroscopy, polypectomy, dilation and curettage. FINDINGS: A 6-cm regular uterus with fibrous tissue blocking internal cervical os and right cornual polyp, both resected. POSTOPERATIVE DIAGNOSIS: Fzeft-wxdq-ngm para 0 with thick endometrium. SURGEON: Keren Valentine MD ANESTHESIOLOGIST: Osvaldo Prieto MD ANESTHESIA: MAC. DESCRIPTION OF THE OPERATIVE PROCEDURE: After assuring informed consent and answering all patient's questions, patient was brought to the operating room where she was placed in dorsal lithotomy position. After assuring anesthesia, perineum and vagina were prepped and draped in sterile fashion. The retractors were placed into the vagina, and anterior cervical lip was articulated with single-tooth tenaculum. Gradually increasing in size, dilators were used to dilate the cervix to allow a 6.3-mm hysteroscope to enter the uterus. Under direct visualization, the above findings were noted, and resectoscope was introduced through the operative port. The above findings were resected. Additional curettage subsequently was performed with a sharp No. 1 curet. All instruments subsequently were removed from the uterus, cervix, and vagina. Excellent hemostasis was noted. SPECIMEN: Removed specimens were uterine polyp and fibrous tissue. ESTIMATED BLOOD LOSS: 5 mL. INSTRUMENT USED: Symphion hysteroscope and resectoscope. FLUID DEFICIT: 0 mL. Patient drained 100 mL of urine and received 500 mL of IV fluids as well as Flagyl and Cipro antibiotics during the procedure. Patient tolerated the procedure well, was brought to the recovery room in extubated condition. All instrument and sponge counts were correct x2. Patricia [id number]
[2020-09-17 14:56] VITALS: BP 131/80; PULSE 84; TEMP 98
--- NOTE | 2020-09-18 15:48 | PATH ---
Surgical Pathology Report Patient Name: TILA COLLINS [facility]. Rec. #: [id number] /Age/Gender: 1960 (Age: 60) / F Account: [id number] Location: [facility] Taken: 09/17/2020 Received: 09/17/2020 Reported: 09/18/2020 Physicians: Keren Valentine M.D. Specimen(s) Received ENDOMETRIAL CURETTINGS AND POLYPS Clinical History Polyp of corpus uteri Final Diagnosis ENDOMETRIAL CURETTINGS AND POLYPS, POLYPECTOMY, DILATION AND CURETTAGE: FRAGMENTS OF ENDOMETRIAL POLYP, ENDOCERVICAL POLYP, AND SCANT BENIGN ENDOCERVICAL EPITHELIUM ADMIXED WITH MUCUS AND BLOOD. Electronically Signed An Whitmore M.D. Gross Description Received in formalin labeled "endometrial curettings and polyps" is a 3.0 x 3.0 x 0.3 cm aggregate of acosta, firm to rubbery tissue fragments admixed with mucus and blood clot. The formalin is filtered and the specimen is entirely submitted in 2 cassettes. /09/17/2020 saudi/09/17/2020
== END 2020-09-17 14:55 | disposition home or self-care (01) ==
LOC: JASU-SURG 04:38
PROVIDERS: ATTEND Obstetrics & Gynecology
PROC: 0UJD8ZZ Inspection of Uterus and Cervix, Via Natural or Artificial Opening Endoscopic (ICD-10-PCS; 2020-09-17)
PROC: 0UB97ZX Excision of Uterus, Via Natural or Artificial Opening, Diagnostic (ICD-10-PCS; principal; 2020-09-17 11:30)
PROC: 0UDB7ZX Extraction of Endometrium, Via Natural or Artificial Opening, Diagnostic (ICD-10-PCS; 2020-09-17 11:30)
DX: N84.0 Polyp of corpus uteri (principal)
CPT/HCPCS: 36415; 85027; 88305-TC; 94760